=== PATIENT | female | born 1995 ===

== ENCOUNTER 2017-02-07 00:44 | Emergency (ER) | payer SELFPAY ==
[2017-02-07 00:50] VITALS: BP 102/67; PULSE 75; RESP 18; TEMP 98; O2SAT 100
--- NOTE | 2017-02-07 01:35 | ED PDOC ---
HPI: Abdomen Time Seen by Provider: 02/07/17 00:56 Chief Complaint (Nursing): Abdominal Pain Chief Complaint (Provider): Abdominal Pain History Per: Patient History/Exam Limitations: no limitations Onset/Duration Of Symptoms: Days (x2 days ago), Sudden Onset, Persistent Outside of [place] travel?: No Current Symptoms Are (Timing): Still Present Severity: Moderate Location Of Pain/Discomfort: RLQ Associated Symptoms: denies: Nausea, Vomiting, Diarrhea, Urinary Symptoms, Other ((-) vaginal bleeding/discharge) Exacerbating Factors: Movement, Cough, Walking Additional Complaint(s): Paola Delacruz is a 21 year old female, with a past medical history of ovarian cysts, who presents to the emergency department for the evaluation of right- sided pelvic pain, that the patient has been experiencing for the past 2 days. Patient states the pain came on suddenly and has since then been constant. The pain radiates throughout her right lower quadrant and into her lower back. Exacerbating factors include ambulation and a cough that does not produce sputum. Denies nausea, vomiting, diarrhea, dysuria, or vaginal bleeding/ discharge. PMD: Dr. Valdivia Past Medical History Reviewed: Historical Data, Nursing Documentation, Vital Signs Vital Signs: Last Vital Signs Temp 98 F 02/07/17 00:48 Pulse 75 02/07/17 00:48 Resp 18 02/07/17 00:48 BP 102/67 02/07/17 00:48 Pulse Ox 100 02/07/17 03:36 - Medical History PMH: Denies: Chronic Kidney Disease Other PMH: Ovarian Cysts - Surgical History Surgical History: No Surg Hx - Family History Family History: States: Unknown Family Hx - Immunization History Hx Tetanus Toxoid Vaccination: No Hx Influenza Vaccination: No Hx Pneumococcal Vaccination: No - Home Medications Home Medications: Ambulatory Orders Medication Instructions Recorded Ciprofloxacin [Cipro] 500 mg PO BID #14 tab 11/10/16 - Allergies Allergies/Adverse Reactions: Allergies Allergy/AdvReac Type Severity Reaction Status Date / Time No Known Allergies Allergy Verified 07/24/16 13:01 Review of Systems ROS Statement: Except As Marked, All Systems Reviewed And Found Negative Respiratory: Positive for: Cough. Negative for: Sputum Gastrointestinal: Negative for: Nausea, Vomiting, Diarrhea Genitourinary Female: Positive for: Pelvic Pain. Negative for: Dysuria, Vaginal Discharge, Vaginal Bleeding Musculoskeletal: Positive for: Back Pain (lower) Physical Exam - Reviewed Nursing Documentation Reviewed: Yes Vital Signs Reviewed: Yes - Physical Exam Appears: Positive for: Non-toxic, No Acute Distress Head Exam: Positive for: ATRAUMATIC, NORMOCEPHALIC Skin: Positive for: Normal Color, Warm, Dry Eye Exam: Positive for: Normal appearance, EOMI Neck: Positive for: Normal, Painless ROM Cardiovascular/Chest: Positive for: Regular Rate, Rhythm. Negative for: Murmur Respiratory: Positive for: Normal Breath Sounds. Negative for: Respiratory Distress Gastrointestinal/Abdominal: Positive for: Normal Exam, Soft, Tenderness (RLQ) Extremity: Positive for: Normal ROM. Negative for: Tenderness, Swelling Neurologic/Psych: Positive for: Alert, Oriented - Laboratory Results Result Diagrams: 02/07/17 01:33 02/07/17 01:33 - ECG O2 Sat by Pulse Oximetry: 100 (RA) Pulse Ox Interpretation: Normal - CT Scan/US Transvaginal US Other Rad Studies (CT/US): Interpreted By Me, Read By Radiologist, Radiology Report Reviewed - Progress Re-evaluation Time: 05:04 Condition: Re-examined, Improved Medical Decision Making Medical Decision Makin:56 Initial Impression: RLQ pain Differential Diagnoses include, but are not limited to a ruptured ovarian cyst, ovarian torsion, less likely appendicitis, and other causes of abdominal pain, such as complications and a urinary tract infection. Initial Plan: * Transvaginal US * CBC * BMP * Urine * Urine Dip * Reevaluation Transvaginal US Results FINDINGS: Uterus: Within normal limits in appearance. Measures 6.8 x 4.0 x 5.6 cm. Endometrial stripe does not appear abnormally thickened, measuring 9.6 mm maximally. Cervix appears closed. Right ovary: Enlarged, measuring 4.6 x 3.5 x 3.1 cm, secondary to a cystic lesion measuring 4.3 x 3.1 x 2.7 cm. This lesion contains a single, echogenic septation. It is otherwise simple in nature. No followup is warranted based on the imaging findings, unless otherwise clinically indicated. Flow seen in the right ovarian parenchyma surrounding this lesion on color and Doppler imaging. Left ovary: Within normal limits in appearance. Measures 2.8 x 2.1 x 1.9 cm. Contains multiple small follicles. Flow seen in the left ovary on color and Doppler imaging, with no evidence of torsion. Cul-de-sac: Small amount of free fluid is identified. This does not appear complex. It is most likely be physiologic in nature. IMPRESSION: 4.3 cm minimally complex cystic lesion in the right ovary. Please see above for a full description. Small amount of free fluid in the cul-de-sac. This may be physiologic in nature. Otherwise negative exam. No evidence of ovarian torsion. Scribe Attestation: Documented by Hadley Bello, acting as a scribe for Sheldon Gardiner MD. Provider Scribe Attestation: All medical record entries made by the Scribe were at my direction and personally dictated by me. I have reviewed the chart and agree that the record accurately reflects my personal performance of the history, physical exam, medical decision making, and the department course for this patient. I have also personally directed, reviewed, and agree with the discharge instructions and disposition. Disposition - Clinical Impression Clinical Impression: Abdominal pain, Ruptured ovarian cyst - Patient ED Disposition Is Patient to be Admitted: No Doctor Will See Patient In The: Office Counseled Patient/Family Regarding: Studies Performed, Diagnosis, Need For Followup - Disposition Referrals: [facility] [Outside] Disposition: Routine/Home Disposition Time: 05:04 Condition: GOOD Additional Instructions: Take advil for pain. Return for worsening. Follow up with your PCP in 2-3 days. Instructions: Ovarian Cyst (ED)
[2017-02-07 01:45] LABS: BASO # 0.1 K/uL (0.0-0.2); BASO % 0.6 % (0.0-2.0); EOS # 0.3 K/uL (0.0-0.7); EOS % 2.6 % (0.0-4.0); HEMATOCRIT 37.2 % (34.0-47.0); LYMPH # 4.4 K/uL (1.0-4.3); LYMPH % 43.3 % (20.0-40.0); MEAN CELL VOLUME 87.5 fl (81.0-99.0); MEAN CORPUSCULAR HEMOGLOBIN 30.7 pg (27.0-31.0); MEAN CORPUSCULAR HGB CONC 35.1 g/dL (33.0-37.0); MEAN PLATELET VOLUME 8.6 fl (7.2-11.7); MONO # 0.6 K/uL (0.0-0.8); NEUT # 4.8 K/uL (1.8-7.0); NEUT % 47.5 % (50.0-75.0); NRBC % 0.1 % (0.0-0.0); RED CELL DISTRIBUTION WIDTH 12.6 % (11.5-14.5); WHITE BLOOD COUNT 10.1 K/uL (4.8-10.8)
[2017-02-07 01:58] LABS: BLOOD UREA NITROGEN 11 mg/dl (7-17); CALCIUM 9.5 mg/dL (8.4-10.2); CARBON DIOXIDE 24 mmol/L (22-30); CHLORIDE 104 mmol/L (98-107); GFR AFRICAN-AMERICAN > 60; GLUCOSE,RANDOM 96 mg/dL (65-105); POTASSIUM 3.4 MMOL/L (3.6-5.0); SODIUM 142 mmol/l (132-148)
--- NOTE | 2017-02-07 03:31 | US ---
EXAM: US Pelvis Complete, Transabdominal US Pelvis, Transvaginal CLINICAL HISTORY: 21 years old, female; Pain; Pelvic pain; Additional info: Right pelvic pain TECHNIQUE: Real-time transabdominal and transvaginal pelvic ultrasound (complete) with image documentation. Transvaginal imaging was used for better evaluation of the endometrium and adnexa. EXAM DATE/TIME: 02/07/2017 1:28 AM COMPARISON: No relevant prior studies available. FINDINGS: Uterus: Within normal limits in appearance. Measures 6.8 x 4.0 x 5.6 cm. Endometrial stripe does not appear abnormally thickened, measuring 9.6 mm maximally. Cervix appears closed. Right ovary: Enlarged, measuring 4.6 x 3.5 x 3.1 cm, secondary to a cystic lesion measuring 4.3 x 3.1 x 2.7 cm. This lesion contains a single, echogenic septation. It is otherwise simple in nature. No followup is warranted based on the imaging findings, unless otherwise clinically indicated. Flow seen in the right ovarian parenchyma surrounding this lesion on color and Doppler imaging. Left ovary: Within normal limits in appearance. Measures 2.8 x 2.1 x 1.9 cm. Contains multiple small follicles. Flow seen in the left ovary on color and Doppler imaging, with no evidence of torsion. Cul-de-sac: Small amount of free fluid is identified. This does not appear complex. It is most likely be physiologic in nature. IMPRESSION: 4.3 cm minimally complex cystic lesion in the right ovary. Please see above for a full description. Small amount of free fluid in the cul-de-sac. This may be physiologic in nature. Otherwise negative exam. No evidence of ovarian torsion.
== END 2017-02-07 05:24 | disposition home or self-care (01) ==
LOC: H.ER 00:44
DX: N83.209 Unspecified ovarian cyst, unspecified side (principal); R10.31 Right lower quadrant pain; R10.2 Pelvic and perineal pain

== ENCOUNTER 2017-04-06 10:55 | Emergency (ER) | payer SELFPAY ==
[2017-04-06 11:01] VITALS: BP 95/64; PULSE 75; TEMP 98.2; O2SAT 98
[2017-04-06 11:02] VITALS: BMI 22.4
--- NOTE | 2017-04-06 11:47 | ED PDOC ---
HPI: Female Pain Time Seen by Provider: 04/06/17 11:35 Chief Complaint (Nursing): Female Genitourinary Chief Complaint (Provider): History Per: Patient History/Exam Limitations: no limitations Associated Symptoms: denies: Fever, Chills, Nausea, Vomiting, Diarrhea, Loss Of Appetite, Back Pain, Chest Pain, Constipation, Urinary Symptoms Additional Complaint(s): 22yo F in ED for eval of vagina d/c x 3-4 days noted after having unprotected sex with new partner-states she has vaginal wall pain, yellow d/c and suprapubic pain.no fever chills nausea vomiting. no vaginal wall lesions no vaginal bleeding. Past Medical History Reviewed: Historical Data, Nursing Documentation, Vital Signs Vital Signs: Last Vital Signs Temp 98.2 F 04/06/17 11:00 Pulse 75 04/06/17 11:00 Resp BP 95/64 L 04/06/17 11:00 Pulse Ox 98 04/06/17 11:00 - Medical History PMH: No Chronic Diseases Denies: Chronic Kidney Disease - Family History Family History: States: Unknown Family Hx - Immunization History Hx Tetanus Toxoid Vaccination: No Hx Influenza Vaccination: No Hx Pneumococcal Vaccination: No - Home Medications Home Medications: Ambulatory Orders Medication Instructions Recorded Ciprofloxacin [Cipro] 500 mg PO BID #14 tab 11/10/16 - Allergies Allergies/Adverse Reactions: Allergies Allergy/AdvReac Type Severity Reaction Status Date / Time No Known Allergies Allergy Verified 07/24/16 13:01 Review of Systems ROS Statement: Except As Marked, All Systems Reviewed And Found Negative Genitourinary Female: Positive for: Vaginal Discharge, Pelvic Pain. Negative for: Vaginal Bleeding Musculoskeletal: Negative for: Back Pain Physical Exam - Reviewed Nursing Documentation Reviewed: Yes Vital Signs Reviewed: Yes - Physical Exam Appears: Positive for: Well, Non-toxic, No Acute Distress Head Exam: Positive for: ATRAUMATIC, NORMAL INSPECTION, NORMOCEPHALIC Skin: Positive for: Normal Color, Warm, DRY Cardiovascular/Chest: Positive for: Regular Rate, Rhythm Respiratory: Positive for: CNT, Normal Breath Sounds Gastrointestinal/Abdominal: Positive for: Normal Exam, Bowel Sounds, Soft, Tenderness Pelvic Exam: Positive for: Discharge, Tender W/Cervical Motion. Negative for: Speculum Exam Normal (yellow d/c), Bimanual Exam Normal, No Cerv. Motion Tender , Lesions, Mass, Tender Adnexa, Tender Uterus Back: Negative for: L CVA Tenderness, R CVA Tenderness Extremity: Positive for: Normal ROM Neurologic/Psych: Positive for: Alert, Oriented - ECG O2 Sat by Pulse Oximetry: 98 Medical Decision Making Medical Decision Making: pt will get prophylactic tx in ED via [id number] and Rocephin 250mg IM STI testing performed pt advised to abstain from sexual intercourse until results are in ., Disposition - Clinical Impression Clinical Impression: Vaginal discharge - Patient ED Disposition Is Patient to be Admitted: No Counseled Patient/Family Regarding: Studies Performed, Diagnosis, Need For Followup - Disposition Disposition: Routine/Home Disposition Time: 11:49 Condition: STABLE Instructions: Sexually Transmitted Diseases (ED)
--- NOTE | 2017-04-06 12:59 | ED PDOC ---
HPI: Female Pain Time Seen by Provider: 04/06/17 11:35 Chief Complaint (Nursing): Female Genitourinary Chief Complaint (Provider): vaignal swelling History Per: Patient History/Exam Limitations: no limitations Onset/Duration Of Symptoms: Days (2-3) Associated Symptoms: denies: Fever, Chills, Nausea, Vomiting, Diarrhea, Loss Of Appetite, Back Pain, Chest Pain, Constipation, Urinary Symptoms Additional Complaint(s): 22yo f in ED for eval of labia swelling and burning x 2d no hx of STI, no vaginal d/.c no pelvic cramping no dysuria no back pain Abnormal Vaginal Bleeding: No Past Medical History Reviewed: Historical Data, Nursing Documentation, Vital Signs Vital Signs: Last Vital Signs Temp 98.2 F 04/06/17 11:00 Pulse 75 04/06/17 11:00 Resp BP 95/64 L 04/06/17 11:00 Pulse Ox 98 04/06/17 11:50 - Medical History PMH: No Chronic Diseases Denies: Chronic Kidney Disease - Family History Family History: States: Unknown Family Hx - Immunization History Hx Tetanus Toxoid Vaccination: No Hx Influenza Vaccination: No Hx Pneumococcal Vaccination: No - Home Medications Home Medications: Ambulatory Orders Medication Instructions Recorded Ciprofloxacin [Cipro] 500 mg PO BID #14 tab 11/10/16 Fluconazole [Diflucan] 150 mg PO ONCE #1 tab 04/06/17 Miconazole 2% [Miconazole 2% Cream] 1 ea EXT BID #1 tube 04/06/17 - Allergies Allergies/Adverse Reactions: Allergies Allergy/AdvReac Type Severity Reaction Status Date / Time No Known Allergies Allergy Verified 07/24/16 13:01 Review of Systems ROS Statement: Except As Marked, All Systems Reviewed And Found Negative Constitutional: Negative for: Fever, Chills Genitourinary Female: Positive for: Other (vaginal burning) Physical Exam - Reviewed Nursing Documentation Reviewed: Yes Vital Signs Reviewed: Yes - Physical Exam Appears: Positive for: Well, Non-toxic, No Acute Distress Skin: Positive for: Normal Color, Warm, DRY Cardiovascular/Chest: Positive for: Regular Rate, Rhythm Respiratory: Positive for: CNT, Normal Breath Sounds Gastrointestinal/Abdominal: Positive for: Normal Exam, Bowel Sounds, Soft. Negative for: Tenderness Pelvic Exam: Negative for: Speculum Exam Normal (d/c white coating to vaginal wall. ), Active Bleeding, Tender Adnexa, Tender Uterus Back: Positive for: Normal Inspection Neurologic/Psych: Positive for: Alert, Oriented - ECG O2 Sat by Pulse Oximetry: 98 Medical Decision Making Medical Decision Making: dx: yeast infection. will get difuclan in ED and d/c with Rx for diflcuan and miconazole creame. Disposition - Clinical Impression Clinical Impression: Vaginal discharge, Vagina, candidiasis - Patient ED Disposition Is Patient to be Admitted: No Counseled Patient/Family Regarding: Diagnosis, Need For Followup, Rx Given - Disposition Disposition: Routine/Home Disposition Time: 11:49 Condition: STABLE Prescriptions: Fluconazole [Diflucan] 150 mg PO ONCE #1 tab Miconazole 2% [Miconazole 2% Cream] 1 ea EXT BID #1 tube Print Language: SAMMARINESE
[2017-04-06] MEDS ORDERED: Fluconazole 150 MG TAB PO ONE (13:02)
== END 2017-04-06 13:28 | disposition home or self-care (01) ==
LOC: H.ER 10:55
DX: B37.3 Candidiasis of vulva and vagina (principal); N89.8 Other specified noninflammatory disorders of vagina

== ENCOUNTER 2017-05-21 04:16 | Observation (INO) | payer SELFPAY ==
[2017-05-21 04:16] VITALS: BMI 22.4
[2017-05-21] MEDS ORDERED: Sodium Chloride 0.9% 1,000 ML IV STA (04:48)
[2017-05-21] MEDS ORDERED: Iohexol 240 (50 ml) PO ONE (04:48)
--- NOTE | 2017-05-21 04:51 | ED PDOC ---
HPI: Abdomen Time Seen by Provider: 05/21/17 04:26 Chief Complaint (Nursing): Abdominal Pain Chief Complaint (Provider): abdominal pain History Per: Patient History/Exam Limitations: no limitations Onset/Duration Of Symptoms: Days (4) Current Symptoms Are (Timing): Still Present Location Of Pain/Discomfort: Diffuse Quality Of Discomfort: Cramping, "Pain" Associated Symptoms: Nausea. denies: Fever, Chills, Vomiting, Diarrhea Additional History Per: Patient Additional Complaint(s): 22 y/o female presents with diffuse abdominal pain x 4 days, worsening today. Patient notes diarrhea with onset of pain, which resolved that day. Last BM consisting of hard stool. Associated nausea. Denies fever, vomiting, chest pain , shortness of breath, dysuria, hematuria, vaginal bleeding/discharge. Past Medical History Reviewed: Historical Data, Nursing Documentation, Vital Signs Vital Signs: Last Vital Signs Temp 98.1 F 05/21/17 04:26 Pulse 75 05/21/17 04:26 Resp 16 05/21/17 04:26 BP 96/58 L 05/21/17 04:26 Pulse Ox 99 05/21/17 04:51 - Medical History PMH: No Chronic Diseases Denies: Chronic Kidney Disease - Surgical History Surgical History: No Surg Hx - Family History Family History: States: Unknown Family Hx - Immunization History Hx Tetanus Toxoid Vaccination: No Hx Influenza Vaccination: No Hx Pneumococcal Vaccination: No - Home Medications Home Medications: Ambulatory Orders Medication Instructions Recorded Ciprofloxacin [Cipro] 500 mg PO BID #14 tab 11/10/16 Fluconazole [Diflucan] 150 mg PO ONCE #1 tab 04/06/17 Miconazole 2% [Miconazole 2% Cream] 1 ea EXT BID #1 tube 04/06/17 - Allergies Allergies/Adverse Reactions: Allergies Allergy/AdvReac Type Severity Reaction Status Date / Time No Known Allergies Allergy Verified 07/24/16 13:01 Review of Systems ROS Statement: Except As Marked, All Systems Reviewed And Found Negative Gastrointestinal: Positive for: Abdominal Pain Physical Exam - Reviewed Nursing Documentation Reviewed: Yes Vital Signs Reviewed: Yes - Physical Exam Appears: Positive for: Well, Non-toxic, No Acute Distress Head Exam: Positive for: ATRAUMATIC, NORMAL INSPECTION, NORMOCEPHALIC Skin: Positive for: Normal Color Eye Exam: Positive for: Normal appearance ENT: Positive for: Normal ENT Inspection Cardiovascular/Chest: Positive for: Regular Rate, Rhythm Respiratory: Positive for: Normal Breath Sounds Gastrointestinal/Abdominal: Positive for: Bowel Sounds, Soft, Tenderness ( epigastric, rlq, suprapubic) Extremity: Positive for: Normal ROM Neurologic/Psych: Positive for: Alert, Oriented - Laboratory Results Result Diagrams: 05/21/17 05:06 05/21/17 05:06 - ECG O2 Sat by Pulse Oximetry: 99 ED OBSERVATION Date of observation admission: 05/21/17 Time of observation admission: 05:40 - Observation admission statement Patient is being placed in observation because:: abdominal pain - Goals of Observation Goals of observation are:: obtain CT abd/pelvis - Progress Note Progress Note: 05/21/17 05:43 Patient resting comfortably; started PO contrast Disposition - Clinical Impression Clinical Impression: Abdominal pain - Patient ED Disposition Is Patient to be Admitted: No - Disposition Disposition: Transfer of Care Disposition Time: 06:00 Condition: STABLE Patient Signed Over To: Sheldon Gardiner Handoff Comments: pending CT
[2017-05-21] MEDS ORDERED: Iohexol 240 (50 ml) ONE (05:08)
[2017-05-21 05:09] LABS: BASO % 0.5 % (0.0-2.0); EOS # 0.1 K/uL (0.0-0.7); HEMATOCRIT 35.6 % (34.0-47.0); LYMPH # 1.7 K/uL (1.0-4.3); LYMPH % 22.2 % (20.0-40.0); MEAN CELL VOLUME 88.5 fl (81.0-99.0); MEAN CORPUSCULAR HGB CONC 33.9 g/dL (33.0-37.0); MEAN PLATELET VOLUME 8.5 fl (7.2-11.7); MONO # 0.5 K/uL (0.0-0.8); MONO % 7.1 % (0.0-10.0); NEUT # 5.2 K/uL (1.8-7.0); NEUT % 69.2 % (50.0-75.0); NRBC % 0.1 % (0.0-0.0); RED CELL DISTRIBUTION WIDTH 12.7 % (11.5-14.5); WHITE BLOOD COUNT 7.5 K/uL (4.8-10.8)
[2017-05-21 05:17] LABS: ALB/GLOB RATIO 1.6 (1.0-2.1); ALKALINE PHOSPHATASE 47 U/L (38-126); ALT/SGPT 40 U/L (9-52); AST/SGOT 22 U/L (14-36); BILIRUBIN,TOTAL 0.4 mg/dl (0.2-1.3); BLOOD UREA NITROGEN 8 mg/dl (7-17); CALCIUM 9.4 mg/dL (8.4-10.2); CARBON DIOXIDE 22 mmol/L (22-30); CHLORIDE 107 mmol/L (98-107); GFR AFRICAN-AMERICAN > 60; GLUCOSE,RANDOM 108 mg/dL (65-105); LIPASE 46 U/L (23-300); POTASSIUM 3.7 MMOL/L (3.6-5.0); SODIUM 140 mmol/l (132-148); TOTAL PROTEIN 7.2 G/DL (6.3-8.2)
[2017-05-21 05:47] LABS: RBC URINE 7 /hpf (0-3); URINE BACTERIA RARE (<OCC); URINE BILIRUBIN NEGATIVE (NEGATIVE); URINE BLOOD NEGATIVE (NEGATIVE); URINE COLOR YELLOW (YELLOW); URINE GLUCOSE (UA) NEG (Normal); URINE KETONE NEGATIVE (NEGATIVE); URINE LEUKOCYTE ESTERASE NEG Leu/uL (Negative); URINE PROTEIN 100 mg/dL (NEGATIVE); URINE UROBILINOGEN 0.2-1.0 mg/dL (0.2-1.0); WBC URINE 2 /hpf (0-5)
--- NOTE | 2017-05-21 05:49 | ED PDOC ---
- Laboratory Results Result Diagrams: 05/21/17 05:06 05/21/17 05:06 - ECG O2 Sat by Pulse Oximetry: 99 (RA) Pulse Ox Interpretation: Normal Medical Decision Making Medical Decision Making: Receiving Sign Out: Patient signed out to me by Glenda Montes PA-C pending CT and final disposition. Scribe Attestation: Documented by Torie Laurent, acting as a scribe for Sheldon Gardiner MD. Provider Scribe Attestation: All medical record entries made by the Scribe were at my direction and personally dictated by me. I have reviewed the chart and agree that the record accurately reflects my personal performance of the history, physical exam, medical decision making, and the department course for this patient. I have also personally directed, reviewed, and agree with the discharge instructions and disposition. Disposition Counseled Patient/Family Regarding: Studies Performed, Diagnosis - Clinical Impression Clinical Impression: Abdominal pain - POA Present On Arrival: None - Disposition Disposition: Transfer of Care Disposition Time: 07:00 Condition: FAIR Patient Signed Over To: Gisela Aguirre Handoff Comments: pending CT AP and final dispo ED OBSERVATION Date of observation admission: 05/21/17 Time of observation admission: 05:40 - Progress Note Progress Note: 05/21/17 06:20 Patient resting in room. 05/21/17 07:00 Patient to be signed out to Dr. Aguirre pending CT AP and final disposition.
[2017-05-21 07:21] VITALS: RESP 18
[2017-05-21] MEDS ORDERED: Iohexol 300 100 ML IJ ONE (07:35)
[2017-05-21] MEDS ORDERED: Sodium Chloride 0.9% 50 ML IV ONE (07:36)
--- NOTE | 2017-05-21 09:01 | CT ---
PROCEDURE: CT Abdomen and Pelvis with contrast HISTORY: abd pain COMPARISON: None. TECHNIQUE: Contrast dose: 95 mL Omnipaque 300 Radiation dose: Total exam DLP = 293.07 mGy-cm. This CT exam was performed using one or more of the following dose reduction techniques: Automated exposure control, adjustment of the mA and/or kV according to patient size, and/or use of iterative reconstruction technique. FINDINGS: LOWER THORAX: Unremarkable. LIVER: Unremarkable. No gross lesion or ductal dilatation. GALLBLADDER AND BILE DUCTS: Unremarkable. PANCREAS: Unremarkable. No gross lesion or ductal dilatation. SPLEEN: Unremarkable. ADRENALS: Unremarkable. No mass. KIDNEYS AND URETERS: Unremarkable. No hydronephrosis. No solid mass. VASCULATURE: Unremarkable. No aortic aneurysm. BOWEL: Unremarkable. No obstruction. No gross mural thickening. APPENDIX: Normal appendix. PERITONEUM: Minimal fluid in cul-de-sac. No generalized ascites. No pneumoperitoneum. LYMPH NODES: No retroperitoneal or pelvic lymphadenopathy. Shotty subcentimeter mesenteric nodes medial to the ascending colon, nonspecific. BLADDER: Grossly normal. Poorly distended. REPRODUCTIVE: Unremarkable uterus. Normal ovaries. BONES: No acute fracture. OTHER FINDINGS: None. IMPRESSION: Minimal fluid in cul-de-sac, nonspecific. Shotty subcentimeter lymph nodes medial to the ascending colon, nonspecific. Please correlate clinically. The remainder of the examination is within normal limits.
--- NOTE | 2017-05-21 09:11 | ED PDOC ---
- Laboratory Results Result Diagrams: 05/21/17 05:06 05/21/17 05:06 - ECG O2 Sat by Pulse Oximetry: 98 - Progress ED Course And Treament: Patient signed out to me as Pending CT and reeval CT shows "minimal fluid in cul de sac, non-specific. Shotty subcentimeter lymph nodes medial to the ascending colon, non-specific." Patient has normal blood work and normal ua. She was made aware of CT results and non-specific lymphadenopathy. On reevaluation, she reports that she feels better. She is afebrile with soft NT/ND abdomen. She is tolerating po. She does not have any diarrhea. Will dc home to follow-up with PMD Disposition - Clinical Impression Clinical Impression: Abdominal pain, LAD (lymphadenopathy), Vomiting - POA Present On Arrival: None - Disposition Disposition: Routine/Home Disposition Time: 09:33 Condition: GOOD
[2017-05-21 09:59] VITALS: BP 118/65; PULSE 68; TEMP 98; O2SAT 99
== END 2017-05-21 09:46 | disposition home or self-care (01) ==
LOC: H.ER 04:16 → H.EROBSV 05:40
PROVIDERS: ADMIT Emergency Medicine; ATTEND Emergency Medicine
DX: R10.84 Generalized abdominal pain (principal); R59.1 Generalized enlarged lymph nodes; R11.10 Vomiting, unspecified

== ENCOUNTER 2017-08-04 23:00 | Emergency (ER) | payer SELFPAY ==
[2017-08-04 23:00] VITALS: BMI 22.4
[2017-08-04 23:12] VITALS: RESP 18; TEMP 97.9; O2SAT 99
[2017-08-04] MEDS ORDERED: Sodium Chloride 0.9% 1,000 ML IV STA (23:54)
[2017-08-05 00:08] LABS: BASO % 0.4 % (0.0-2.0); EOS # 0.1 K/uL (0.0-0.7); EOS % 1.2 % (0.0-4.0); HEMATOCRIT 35.9 % (34.0-47.0); LYMPH # 1.5 K/uL (1.0-4.3); LYMPH % 17.1 % (20.0-40.0); MEAN CELL VOLUME 88.8 fl (81.0-99.0); MEAN CORPUSCULAR HEMOGLOBIN 30.7 pg (27.0-31.0); MEAN CORPUSCULAR HGB CONC 34.5 g/dL (33.0-37.0); MEAN PLATELET VOLUME 8.3 fl (7.2-11.7); MONO # 0.7 K/uL (0.0-0.8); MONO % 7.9 % (0.0-10.0); NEUT # 6.5 K/uL (1.8-7.0); NEUT % 73.4 % (50.0-75.0); RED CELL DISTRIBUTION WIDTH 12.3 % (11.5-14.5); WHITE BLOOD COUNT 8.8 K/uL (4.8-10.8)
[2017-08-05 00:18] LABS: ALB/GLOB RATIO 1.5 (1.0-2.1); ALKALINE PHOSPHATASE 45 U/L (38-126); ALT/SGPT 34 U/L (9-52); AST/SGOT 29 U/L (14-36); BILIRUBIN,TOTAL 0.2 mg/dl (0.2-1.3); BLOOD UREA NITROGEN 10 mg/dl (7-17); CALCIUM 9.4 mg/dL (8.4-10.2); CARBON DIOXIDE 24 mmol/L (22-30); CHLORIDE 103 mmol/L (98-107); GFR AFRICAN-AMERICAN > 60; GLUCOSE,RANDOM 122 mg/dL (65-105); LIPASE 47 U/L (23-300); POTASSIUM 3.5 MMOL/L (3.6-5.0); SODIUM 141 mmol/l (132-148); TOTAL PROTEIN 7.5 G/DL (6.3-8.2)
[2017-08-05 00:52] LABS: RBC URINE 4 /hpf (0-3); URINE BILIRUBIN NEGATIVE (NEGATIVE); URINE BLOOD NEGATIVE (NEGATIVE); URINE COLOR YELLOW (YELLOW); URINE GLUCOSE (UA) NEG (Normal); URINE KETONE NEGATIVE (NEGATIVE); URINE LEUKOCYTE ESTERASE NEG Leu/uL (Negative); URINE PROTEIN 30 mg/dL (NEGATIVE); URINE UROBILINOGEN 0.2-1.0 mg/dL (0.2-1.0); WBC URINE 11 /hpf (0-5)
--- NOTE | 2017-08-05 02:44 | US ---
EXAM: US Abdomen Limited, Right Upper Quadrant EXAM DATE/TIME: 08/05/2017 1:17 AM CLINICAL HISTORY: 22 years old, female; Pain; Abdominal pain; Epigastric; Additional info: Ruq pain TECHNIQUE: Real-time ultrasound of the right upper quadrant with image documentation. COMPARISON: No relevant prior studies available. FINDINGS: Gallbladder: Appears contracted, which somewhat limits evaluation. There is no evidence of gallstones, significant gallbladder wall thickening, or pericholecystic fluid. Reportedly negative sonographic Chilel's sign. Common bile duct: Does not appear abnormally dilated, measuring less than 6 mm in diameter. Liver: Within normal limits in appearance. Measures 13.9 cm in length. Normal flow seen in the main portal vein on color and Doppler imaging. Pancreas: Imaged portions appear unremarkable. Right kidney: Within normal limits in appearance. Measures 9 cm in length. No evidence of hydronephrosis. IMPRESSION: No significant abnormality identified. No evidence of gallstones or cholecystitis. Exam is somewhat limited by gallbladder contraction. See above for remaining findings.
--- NOTE | 2017-08-05 03:00 | ED PDOC ---
HPI: Abdomen Time Seen by Provider: 08/04/17 23:26 Chief Complaint (Nursing): Abdominal Pain Chief Complaint (Provider): Abdominal Pain, nasuea, vomiting, diarrhea History Per: Patient History/Exam Limitations: no limitations Onset/Duration Of Symptoms: Days (2 days) Outside of [place] travel?: No Current Symptoms Are (Timing): Still Present Associated Symptoms: Nausea, Vomiting (nonbloody, nonbilious), Diarrhea ( nonbloody) Additional Complaint(s): Patient is a 22 y/o female with a past medical history of ovarian cyst , presenting to the ED with 24 hours of worsening epigastric abdominal pain that radiates to the back. She reports associated nausea, non bloody no bilious vomiting, and non bloody diarrhea. She notes that she has not had any recent travel, and denies any further symptoms. PMD: FAMILY PROVIDER,NO Past Medical History Reviewed: Historical Data, Nursing Documentation, Vital Signs Vital Signs: Last Vital Signs Temp 97.9 F 08/04/17 23:10 Pulse 98 H 08/04/17 23:10 Resp 18 08/04/17 23:10 BP 98/79 L 08/04/17 23:10 Pulse Ox 99 08/04/17 23:10 - Medical History PMH: Denies: Chronic Kidney Disease Other PMH: Ovarian cyst - Surgical History Surgical History: No Surg Hx - Family History Family History: States: No Known Family Hx, Unknown Family Hx - Social History Current smoker - smoking cessation education provided: No Alcohol: None Drugs: Denies - Immunization History Hx Tetanus Toxoid Vaccination: No Hx Influenza Vaccination: No Hx Pneumococcal Vaccination: No - Home Medications Home Medications: Ambulatory Orders Medication Instructions Recorded Ciprofloxacin [Cipro] 500 mg PO BID #14 tab 11/10/16 Fluconazole [Diflucan] 150 mg PO ONCE #1 tab 04/06/17 Miconazole 2% [Miconazole 2% Cream] 1 ea EXT BID #1 tube 04/06/17 Dicyclomine [Bentyl] 20 mg PO Q12 PRN #20 tab 08/05/17 Esomeprazole Magnesium [Nexium] 40 mg PO DAILY #28 ecc 08/05/17 Nitrofurantoin Macrocrystals 100 mg PO BID #14 cap 08/05/17 [Macrobid] Ondansetron ODT [Zofran ODT] 4 mg PO Q6 PRN #16 odt 08/05/17 - Allergies Allergies/Adverse Reactions: Allergies Allergy/AdvReac Type Severity Reaction Status Date / Time No Known Allergies Allergy Verified 08/04/17 23:10 Review of Systems ROS Statement: Except As Marked, All Systems Reviewed And Found Negative Gastrointestinal: Positive for: Nausea, Vomiting (non bloody, non bilious), Abdominal Pain (epigastric, radiating to back), Diarrhea (non bloody) Physical Exam - Reviewed Nursing Documentation Reviewed: Yes Vital Signs Reviewed: Yes - Physical Exam Appears: Positive for: No Acute Distress Head Exam: Positive for: ATRAUMATIC, NORMOCEPHALIC Skin: Positive for: Normal Color, Warm, Dry Eye Exam: Positive for: Normal appearance, EOMI, PERRL Neck: Positive for: Normal, Painless ROM, Supple Cardiovascular/Chest: Positive for: Regular Rate, Rhythm. Negative for: Murmur Respiratory: Positive for: Normal Breath Sounds. Negative for: Respiratory Distress Gastrointestinal/Abdominal: Positive for: Tenderness (epigastric) Back: Positive for: Normal Inspection. Negative for: L CVA Tenderness, R CVA Tenderness, Vertebral Tenderness Extremity: Positive for: Normal ROM. Negative for: Tenderness Neurologic/Psych: Positive for: Alert, Oriented (x3) - Laboratory Results Result Diagrams: 08/05/17 00:06 08/05/17 00:06 - ECG O2 Sat by Pulse Oximetry: 99 (RA) Pulse Ox Interpretation: Normal Medical Decision Making Medical Decision Making: Time: 23:34 Initial Impression: 22 y/o female with abdominal pain, vomiting, and diarrhea in setting of known gastritis Initial Plan: -Labs -Urine -Sodium Chloride 0.9% 1000 ml IV -Ketorolac 10 mg IVP -Zofran 4 mg IV -Heplock Insertion -Urinalysis -US Abdomen 0117 US Abdomen Results FINDINGS: Gallbladder: Appears contracted, which somewhat limits evaluation. There is no evidence of gallstones, significant gallbladder wall thickening, or pericholecystic fluid. Reportedly negative sonographic Chilel's sign. Common bile duct: Does not appear abnormally dilated, measuring less than 6 mm in diameter. Liver: Within normal limits in appearance. Measures 13.9 cm in length. Normal flow seen in the main portal vein on color and Doppler imaging. Pancreas: Imaged portions appear unremarkable. Right kidney: Within normal limits in appearance. Measures 9 cm in length. No evidence of hydronephrosis. IMPRESSION: No significant abnormality identified. No evidence of gallstones or cholecystitis. Exam is somewhat limited by gallbladder contraction. See above for remaining findings. 0132 -Bentyl 20 mg PO 0303 -Labs reviewed and report no clinically significant abnormalities. Patient reports improvement in symptoms, is stable and awaiting discharge home. Clinical Impression: Gastroenteritis and UTI Upon provider evaluation patient is medically stable, and requires no further treatment in the ED at this time. Patient will be discharged with Rx for Bentyl 20mg, Magnesium 40mg, Macrobid 100mg, and Zofran ODT 4mg. Counseling was provided and all questions were answered regarding diagnosis. There is agreement to discharge plan. Return if symptoms persist or worsen. Scribe Attestation: Documented by Maritza Daniel, acting as a scribe for Shane Zendejas MD Provider Scribe Attestation: All medical record entries made by the Scribe were at my direction and personally dictated by me. I have reviewed the chart and agree that the record accurately reflects my personal performance of the history, physical exam, medical decision making, and the department course for this patient. I have also personally directed, reviewed, and agree with the discharge instructions and disposition. Disposition - Clinical Impression Clinical Impression: UTI (urinary tract infection), Gastroenteritis - Disposition Disposition: Routine/Home Disposition Time: 03:03 Condition: STABLE Prescriptions: Dicyclomine [Bentyl] 20 mg PO Q12 PRN #20 tab PRN Reason: abdominal pain/diarrhea Esomeprazole Magnesium [Nexium] 40 mg PO DAILY #28 ecc Nitrofurantoin Macrocrystals [Macrobid] 100 mg PO BID #14 cap Ondansetron ODT [Zofran ODT] 4 mg PO Q6 PRN #16 odt PRN Reason: Nausea/Vomiting Instructions: Urinary Tract Infection in Women (ED), Gastroenteritis (ED) Forms: [employer] (French)
[2017-08-05 03:50] VITALS: BP 115/62; PULSE 73
== END 2017-08-05 03:21 | disposition home or self-care (01) ==
LOC: H.ER 23:00
DX: K52.9 Noninfective gastroenteritis and colitis, unspecified (principal); N39.0 Urinary tract infection, site not specified
CPT/HCPCS: 76705; 80053; 81003; 81025; 83690; 85025; 96361; 96374; 96375; 99283; J1885; J2405; J7040

== ENCOUNTER 2017-11-30 18:53 | Emergency (ER) | payer SELFPAY ==
[2017-11-30 18:53] VITALS: BMI 22.4
[2017-11-30 19:12] VITALS: BP 103/76; PULSE 89; RESP 18; TEMP 98.7; O2SAT 100
--- NOTE | 2017-11-30 20:32 | ED PDOC ---
HPI: General Adult Time Seen by Provider: 11/30/17 19:14 Chief Complaint (Nursing): Flu-like Symptoms Chief Complaint (Provider): Bodyaches, cough, fever, 103.8 at home History Per: Patient History/Exam Limitations: no limitations Onset/Duration Of Symptoms: Days Have you had recent travel within the past 21 days to any of the following countries: [place], [place], [place] or [place]?: No Current Symptoms Are (Timing): Still Present Additional Complaint(s): Today is the 4th day of symptoms. 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 Past Medical History Reviewed: Historical Data, Nursing Documentation, Vital Signs Vital Signs: Last Vital Signs Temp 98.7 F 11/30/17 19:08 Pulse 89 11/30/17 19:08 Resp 18 11/30/17 19:08 BP 103/76 11/30/17 19:08 Pulse Ox 100 11/30/17 19:08 - Medical History PMH: No Chronic Diseases Denies: Chronic Kidney Disease - Surgical History Surgical History: No Surg Hx - Family History Family History: States: Unknown Family Hx - Living Arrangements Living Arrangements: With Family - Social History Current smoker - smoking cessation education provided: No - Immunization History Hx Tetanus Toxoid Vaccination: No Hx Influenza Vaccination: No Hx Pneumococcal Vaccination: No - Home Medications Home Medications: Ambulatory Orders Medication Instructions Recorded Ciprofloxacin [Cipro] 500 mg PO BID #14 tab 11/10/16 Fluconazole [Diflucan] 150 mg PO ONCE #1 tab 04/06/17 Miconazole 2% [Miconazole 2% Cream] 1 ea EXT BID #1 tube 04/06/17 Dicyclomine [Bentyl] 20 mg PO Q12 PRN #20 tab 08/05/17 Esomeprazole Magnesium [Nexium] 40 mg PO DAILY #28 ecc 08/05/17 Nitrofurantoin Macrocrystals 100 mg PO BID #14 cap 08/05/17 [Macrobid] Ondansetron ODT [Zofran ODT] 4 mg PO Q6 PRN #16 odt 08/05/17 Promethazine HCl/Codeine 10 ml PO Q8H PRN #150 ml 11/30/17 [Prometh-Codein 6.25-10 mg/5 ml] - Allergies Allergies/Adverse Reactions: Allergies Allergy/AdvReac Type Severity Reaction Status Date / Time No Known Allergies Allergy Verified 08/04/17 23:10 Review of Systems ROS Statement: Except As Marked, All Systems Reviewed And Found Negative Constitutional: Positive for: Fever, Chills, Sweats, Malaise Cardiovascular: Negative for: Chest Pain Respiratory: Positive for: Cough. Negative for: Shortness of Breath Physical Exam - Reviewed Nursing Documentation Reviewed: Yes Vital Signs Reviewed: Yes - Physical Exam Appears: Positive for: Well, Non-toxic, No Acute Distress Head Exam: Positive for: ATRAUMATIC, NORMAL INSPECTION, NORMOCEPHALIC Skin: Positive for: Normal Color, Warm, DRY Eye Exam: Positive for: Normal appearance ENT: Positive for: Normal ENT Inspection Neck: Positive for: Normal, Painless ROM Cardiovascular/Chest: Positive for: Regular Rate, Rhythm Respiratory: Positive for: Normal Breath Sounds. Negative for: Accessory Muscle Use, Respiratory Distress Back: Positive for: Normal Inspection Extremity: Positive for: Normal ROM Neurologic/Psych: Positive for: Alert, Oriented - ECG O2 Sat by Pulse Oximetry: 100 Disposition - Clinical Impression Clinical Impression: Influenza - Patient ED Disposition Is Patient to be Admitted: No Counseled Patient/Family Regarding: Diagnosis, Need For Followup - Disposition Disposition: Routine/Home Disposition Time: 20:36 Condition: GOOD Prescriptions: Promethazine HCl/Codeine [Prometh-Codein 6.25-10 mg/5 ml] 10 ml PO Q8H PRN #150 ml PRN Reason: Cough Instructions: Influenza (ED) Forms: [employer] (Macedonian), [facility] ED School/Work Excuse
== END 2017-11-30 20:46 | disposition home or self-care (01) ==
LOC: H.ER 18:53
DX: J11.1 Influenza due to unidentified influenza virus with other respiratory manifestations (principal)

== ENCOUNTER 2018-01-14 15:53 | Emergency (ER) | payer SELFPAY ==
[2018-01-14 15:53] VITALS: BMI 22.4
[2018-01-14 16:15] VITALS: BP 110/74; PULSE 85; RESP 16; TEMP 98.1; O2SAT 100
--- NOTE | 2018-01-14 16:50 | ED PDOC ---
HPI: Eye Injury/Pain Time Seen by Provider: 01/14/18 16:23 Chief Complaint (Nursing): Eye Problem Chief Complaint (Provider): Right eye irritation History Per: Patient History/Exam Limitations: no limitations Onset/Duration Of Symptoms: Days Current Symptoms Are (Timing): Still Present Injury To Eye?: No Additional Complaint(s): 22yo female, presents to ED for evaluation of irritation and itchiness to her right eye. 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 She also reports noticing a white discharge from her eye this morning. She deneis any eye pain, foreign body sensation, or decreased vision. . Otherwise: (-) visual changes, (-) other injury, (-) contact lens. Past Medical History Reviewed: Historical Data, Nursing Documentation, Vital Signs Vital Signs: Last Vital Signs Temp 98.1 F 01/14/18 16:12 Pulse 85 01/14/18 16:12 Resp 16 01/14/18 16:12 BP 110/74 01/14/18 16:12 Pulse Ox 100 01/14/18 16:12 - Medical History PMH: No Chronic Diseases Denies: Chronic Kidney Disease - Surgical History Surgical History: No Surg Hx - Family History Family History: States: Unknown Family Hx - Immunization History Hx Tetanus Toxoid Vaccination: No Hx Influenza Vaccination: No Hx Pneumococcal Vaccination: No - Home Medications Home Medications: Ambulatory Orders Medication Instructions Recorded Ciprofloxacin [Cipro] 500 mg PO BID #14 tab 11/10/16 Fluconazole [Diflucan] 150 mg PO ONCE #1 tab 04/06/17 Miconazole 2% [Miconazole 2% Cream] 1 ea EXT BID #1 tube 04/06/17 Dicyclomine [Bentyl] 20 mg PO Q12 PRN #20 tab 08/05/17 Esomeprazole Magnesium [Nexium] 40 mg PO DAILY #28 ecc 08/05/17 Nitrofurantoin Macrocrystals 100 mg PO BID #14 cap 08/05/17 [Macrobid] Ondansetron ODT [Zofran ODT] 4 mg PO Q6 PRN #16 odt 08/05/17 Promethazine HCl/Codeine 10 ml PO Q8H PRN #150 ml 11/30/17 [Prometh-Codein 6.25-10 mg/5 ml] Cetirizine HCl [Zyrtec] 10 mg PO DAILY #30 capsule 01/14/18 Tobramycin 0.3% [Tobrex 0.3% Ophth 5 drop OU QID #1 bottle 01/14/18 Soln] - Allergies Allergies/Adverse Reactions: Allergies Allergy/AdvReac Type Severity Reaction Status Date / Time No Known Allergies Allergy Verified 01/14/18 16:12 Review of Systems ROS Statement: Except As Marked, All Systems Reviewed And Found Negative Constitutional: Negative for: Fever, Chills Eyes: Positive for: Other (right eye irritation). Negative for: Pain, Vision Change Physical Exam - Reviewed Nursing Documentation Reviewed: Yes Vital Signs Reviewed: Yes - Physical Exam Comments: GENERAL APPEARANCE: Patient is awake, alert, oriented x 3, in no acute distress. HEENT: (-) facial swelling and erythema, (-) facial blisters. LIDS & LASHES: Normal. PUPILS: Pupils equally round. reactive. EOM's: Intact. CONJUNCTIVAE: (-) injection. - ECG O2 Sat by Pulse Oximetry: 100 (RA) Pulse Ox Interpretation: Normal Medical Decision Making Medical Decision Making: Impression: Conjunctivitis Plan: -- Patient to be discharged home with Tobrex ophthlamic drops and Zyrtec. Advised to follow up with primary care physician in 1-2 days without fail. Advised to take medication as prescribed. Return to the emergency room at any time for any new or worsening symptoms. Patient states she fully agrees with and understands discharge instructions. States that she agrees with the plan and disposition. Verbalized and repeated discharge instructions and plan. I have given the patient opportunity to ask any additional questions. Scribe Attestation: Documented by Torie Laurent acting as a scribe for Michelle Fritz PA-C. Provider Attestation: All medical record entries made by the Scribe were at my direction and personally dictated by me. I have reviewed the chart and agree that the record accurately reflects my personal performance of the history, physical exam, medical decision making, and the department course for this patient. I have also personally directed, reviewed, and agree with the discharge instructions and disposition. Disposition - Clinical Impression Clinical Impression: Conjunctivitis - Disposition Disposition: Routine/Home Disposition Time: 16:40 Condition: STABLE Additional Instructions: Thank you for letting us take care of you today. You were treated for conjunctivitis. The emergency medical care you received today was directed at your acute symptoms. If you were prescribed any medication, please fill it and take as directed. It may take several days for your symptoms to resolve. Return to the Emergency Department if your symptoms worsen, do not improve, or if you have any other problems. Please contact your doctor in 2 days for re-evaluation and follow up. Bring any paperwork you were given at discharge with you along with any medications you are taking to your follow up visit. Our treatment cannot replace ongoing medical care by a primary care provider (PCP) outside of the emergency department. Thank you for allowing the [facility] team to be part of your care today. Prescriptions: Cetirizine HCl [Zyrtec] 10 mg PO DAILY #30 capsule Tobramycin 0.3% [Tobrex 0.3% Ophth Soln] 5 drop OU QID #1 bottle Instructions: Conjunctivitis ([place]) Forms: [employer] (Uzbek), [facility] ED School/Work Excuse
== END 2018-01-14 17:18 | disposition home or self-care (01) ==
LOC: H.ER 15:53
DX: H10.9 Unspecified conjunctivitis (principal)

== ENCOUNTER 2018-04-06 11:37 | Emergency (ER) | payer SELFPAY ==
[2018-04-06 11:38] VITALS: BMI 22.4
[2018-04-06 11:42] VITALS: RESP 18; TEMP 97.9
[2018-04-06 12:39] LABS: SQUAMOUS EPITHIAL 4 /hpf (0-5); URINE BACTERIA RARE (<OCC); URINE BILIRUBIN NEGATIVE (NEGATIVE); URINE BLOOD SMALL (NEGATIVE); URINE CLARITY CLEAR (Clear); URINE COLOR STRAW (YELLOW); URINE GLUCOSE (UA) NEG (Normal); URINE LEUKOCYTE ESTERASE NEG Leu/uL (Negative); URINE PROTEIN NEGATIVE (NEGATIVE); URINE UROBILINOGEN 0.2-1.0 mg/dL (0.2-1.0)
[2018-04-06 13:33] LABS: BASO % 0.5 % (0.0-2.0); EOS # 0.2 K/uL (0.0-0.7); EOS % 1.8 % (0.0-4.0); HEMOGLOBIN 14.2 g/dL (12.0-16.0); LYMPH # 2.6 K/uL (1.0-4.3); MEAN CORPUSCULAR HEMOGLOBIN 31.1 pg (27.0-31.0); MEAN CORPUSCULAR HGB CONC 35.4 g/dL (33.0-37.0); MEAN PLATELET VOLUME 8.6 fl (7.2-11.7); MONO # 0.6 K/uL (0.0-0.8); MONO % 6.6 % (0.0-10.0); NEUT # 5.6 K/uL (1.8-7.0); NEUT % 62.1 % (50.0-75.0); NRBC % 0.1 % (0.0-0.0); RBC 4.57 Mil/uL (3.80-5.20); RED CELL DISTRIBUTION WIDTH 12.6 % (11.5-14.5)
[2018-04-06 13:43] LABS: BLOOD UREA NITROGEN 9 mg/dl (7-17); CALCIUM 9.6 mg/dL (8.4-10.2); GFR AFRICAN-AMERICAN > 60; GFR NON-AFRICAN AMERICAN > 60
--- NOTE | 2018-04-06 14:18 | ED PDOC ---
HPI: Female Pain Time Seen by Provider: 04/06/18 11:57 Chief Complaint (Nursing): Female Genitourinary Chief Complaint (Provider): Lower Abdominal Pain History Per: Patient History/Exam Limitations: no limitations Onset/Duration Of Symptoms: Hrs Current Symptoms Are (Timing): Still Present Quality Of Discomfort: Pressure Associated Symptoms: denies: Fever, Chills, Nausea, Vomiting, Diarrhea, Back Pain Additional Complaint(s): 23 year old female presents to the emergency department complaining of lower abdominal pain which began this morning. Patient also reports that she also noticed some pink and brown vaginal discharge since yesterday. She states that the pain is pressure like and rates it as a 7/10. Patient further reports that she stopped taking her control 1.5 weeks ago. Denies fever, chills, nausea , vomiting, diarrhea, back pain, flank pain, chest pain, SOB. Also denies use of pads and tampons as she states that the bleeding was very mild. PM[facility] Last Menstral Period: 02/26/28 Past Medical History Reviewed: Historical Data, Nursing Documentation, Vital Signs Vital Signs: Last Vital Signs Temp 97.9 F 04/06/18 11:41 Pulse 80 04/06/18 11:41 Resp 18 04/06/18 11:41 BP 111/72 04/06/18 11:41 Pulse Ox 98 04/06/18 11:41 - Medical History PMH: No Chronic Diseases - Surgical History Other surgeries: Cyst removal from b/l breast - Family History Family History: States: Unknown Family Hx - Living Arrangements Living Arrangements: With Family - Social History Current smoker - smoking cessation education provided: Yes (2 cigarrettes per month) Alcohol: Social Drugs: Denies - Home Medications Home Medications: Ambulatory Orders Medication Instructions Recorded Ciprofloxacin [Cipro] 500 mg PO BID #14 tab 11/10/16 Fluconazole [Diflucan] 150 mg PO ONCE #1 tab 04/06/17 Miconazole 2% [Miconazole 2% Cream] 1 ea EXT BID #1 tube 04/06/17 Dicyclomine [Bentyl] 20 mg PO Q12 PRN #20 tab 08/05/17 Esomeprazole Magnesium [Nexium] 40 mg PO DAILY #28 ecc 08/05/17 Nitrofurantoin Macrocrystals 100 mg PO BID #14 cap 08/05/17 [Macrobid] Ondansetron ODT [Zofran ODT] 4 mg PO Q6 PRN #16 odt 08/05/17 Promethazine HCl/Codeine 10 ml PO Q8H PRN #150 ml 11/30/17 [Prometh-Codein 6.25-10 mg/5 ml] Cetirizine HCl [Zyrtec] 10 mg PO DAILY #30 capsule 01/14/18 Tobramycin 0.3% [Tobrex 0.3% Ophth 5 drop OU QID #1 bottle 01/14/18 Soln] Naproxen [Naprosyn] 500 mg PO BID PRN #20 tablet 04/06/18 - Allergies Allergies/Adverse Reactions: Allergies Allergy/AdvReac Type Severity Reaction Status Date / Time No Known Allergies Allergy Verified 04/06/18 11:49 Review of Systems ROS Statement: Except As Marked, All Systems Reviewed And Found Negative Constitutional: Negative for: Fever, Chills Gastrointestinal: Positive for: Abdominal Pain (lower). Negative for: Nausea, Vomiting, Diarrhea Genitourinary Female: Positive for: Vaginal Discharge (pink and brown). Negative for: Hematuria Musculoskeletal: Negative for: Back Pain Physical Exam - Reviewed Nursing Documentation Reviewed: Yes Vital Signs Reviewed: Yes - Physical Exam Comments: GENERAL APPEARANCE: Patient is awake, alert, oriented x 3, in no distress. Resting comfortably. SKIN: Warm, dry; (-) cyanosis. EYES: (-) conjunctival pallor, (-) scleral icterus. ENMT: Mucous membranes moist. NECK: Supple, FROM CHEST AND RESPIRATORY: (-) rales, (-) rhonchi, (-) wheezes; breath sounds equal bilaterally. Speaking in full sentences, respirations even and nonlabored. HEART AND CARDIOVASCULAR: (-) irregularity; (-) murmur, (-) gallop. ABDOMEN AND GI: (-) distention. Bowel sounds active x4, (+) mild suprapubic tenderness . (-) guarding, (-) rebound, (-) palpable masses, (-) CVA tenderness. PELVIC: normal external genitalia. (-) rash. (-) vesicles. (-) ulcers. Scant amount of pink and brown discharge from cervix. Vaginal canal unremarkable. Left sided adnexa tenderness. (-) cervical motion tenderness. EXTREMITIES: (-) deformity, (-) edema, (+) distal pulses. NEURO AND PSYCH: Mental status as above; (-) focal findings. Gait steady, speech clear. - Laboratory Results Result Diagrams: 04/06/18 13:20 04/06/18 13:20 Urine POC: Negative - ECG O2 Sat by Pulse Oximetry: 98 (RA) Pulse Ox Interpretation: Normal Medical Decision Making Medical Decision Makin Initial Impression Abdominal Pain and vaginal bleeding Initial Plan: * Type and Screen * BMP * Upreg * CBC * Chlamydia /GC RNA * Toradol 30mg IVP * Urine Culture * Urinalysis * US pelvis - r/o Ovarian Pathology * US transvaginal * Reevaluation Upreg in ED (-) Patient declined STD prophylaxis. 1435 Patient in U/S. Labs reviewed and grossly unremarkable. Urine with no evidence of UTI. 1447 HISTORY: abd pain, vag bleed, COMPARISON: Pelvic ultrasound dated 09/01/2017. TECHNIQUE: Grayscale, color Doppler and spectral evaluation the pelvis performed transvaginally FINDINGS: UTERUS: Measures 8.0 x 2.7 x 4.4 cm. Normal in size and appearance. No fibroid or other mass lesion seen. ENDOMETRIUM: Measures 6 mm in diameter. Unremarkable. CERVIX: No cervical abnormality identified. RIGHT OVARY: Measures 1.8 x 1.1 x 1.4 cm. No solid mass. Normal flow. LEFT OVARY: Measures 3.8 x 2.6 x 3.5 cm. 3.3 x 2.2 x 3.3 cm cyst. Normal flow. FREE FLUID: Small to moderate free fluid noted, likely physiologic. OTHER FINDINGS: None. IMPRESSION: Left ovarian 3.3 cm cyst. Small to moderate fluid fluid, likely physiologic. Otherwise, unremarkable pelvic ultrasound. 1510 On re-evaluation, patient reports improvement of symptoms, denies any abdominal pain at present. On exam, patient remains AAOx3, in no acute distress. Lungs clear to auscultation, cardiac RRR, abdomen soft, non-tender, repeat neuro exam shows no focal findings. Hemodynamically stable, appropriate for outpatient OBGYN follow up. Lab / Diagnostic results d/w the patient in great detail. Diagnosis of abdominal pain, vaginal bleeding, ovarian cust d/w the patient. Based on history, exam and diagnostic results, plan will be for outpatient follow up. Patient instructed to follow-up with pmd / referral provided / the clinic in 1- 2 days without fail. Advised to take medication as prescribed. Return to the emergency room at any time for any new or worsening symptoms. Patient states she fully agrees with and understands discharge instructions. States that she agrees with the plan and disposition. Verbalized and repeated discharge instructions and plan. I have given the patient opportunity to ask any additional questions. -------- Documented by Roxy Valdivia acting as a scribe for Suze Dc PA-C. All medical record entries made by the Scribe were at my direction and personally dictated by me. I have reviewed the chart and agree that the record accurately reflects my personal performance of the history, physical exam, medical decision making, and the department course for this patient. I have also personally directed, reviewed, and agree with the discharge instructions and disposition. Disposition - Clinical Impression Clinical Impression: Ovarian cyst, Lower abdominal pain, Vaginal bleeding - Patient ED Disposition Is Patient to be Admitted: No Counseled Patient/Family Regarding: Studies Performed, Diagnosis, Need For Followup, Rx Given - Disposition Referrals: Ham Tamayo MD [Staff Provider] - Disposition: Routine/Home Disposition Time: 15:13 Condition: STABLE Additional Instructions: FOLLOW UP WITH PMD/[facility] IN 1-2 DAYS FOR FURTHER EVALUATION. RETURN TO ED WITH ANY NEW OR WORSENING SYMPTOMS. TAKE MEDICATION NEEDED FOR DISCOMFORT. Prescriptions: Naproxen [Naprosyn] 500 mg PO BID PRN #20 tablet PRN Reason: Pain, Moderate (4-7) Instructions: Ovarian Cysts, Acute Abdomen (Belly Pain) Forms: [employer] (Austrian) Print Language: YI - POA Present On Arrival: None Results - Lab Results Lab Results: 04/06/18 04/06/18 04/06/18 13:48 13:20 13:20 WBC 9.0 RBC 4.57 Hgb 14.2 Hct 40.2 MCV 88.0 MCH 31.1 H MCHC 35.4 RDW 12.6 Plt Count 255 MPV 8.6 Neut % (Auto) 62.1 Lymph % (Auto) 29.0 [place] % (Auto) 6.6 Eos % (Auto) 1.8 Baso % (Auto) 0.5 Neut # (Auto) 5.6 Lymph # (Auto) 2.6 [place] # (Auto) 0.6 Eos # (Auto) 0.2 Baso # (Auto) 0.0 Sodium Potassium Chloride Carbon Dioxide Anion Gap BUN Creatinine Est GFR ( Amer) Est GFR (Non-Af Amer) Random Glucose Calcium Urine Color Urine Clarity Urine pH Ur Specific [place] Urine Protein Urine Glucose (UA) Urine Ketones Urine Blood Urine Nitrate Urine Bilirubin Urine Urobilinogen Ur Leukocyte Esterase Urine RBC (Auto) Urine Microscopic WBC Ur Squamous Epith Cells Urine Bacteria Blood Type O POSITIVE Blood Type Confirm O POSITIVE Antibody Screen Negative BBK History Checked No verified bt 04/06/18 04/06/18 13:20 12:17 WBC RBC Hgb Hct MCV MCH MCHC RDW Plt Count MPV Neut % (Auto) Lymph % (Auto) [place] % (Auto) Eos % (Auto) Baso % (Auto) Neut # (Auto) Lymph # (Auto) [place] # (Auto) Eos # (Auto) Baso # (Auto) Sodium 138 Potassium 4.2 Chloride 102 Carbon Dioxide 28 Anion Gap 12 BUN 9 Creatinine 0.6 L Est GFR ( Amer) > 60 Est GFR (Non-Af Amer) > 60 Random Glucose 93 Calcium 9.6 Urine Color Straw Urine Clarity Clear Urine pH 7.0 Ur Specific [place] < 1.005 Urine Protein Negative Urine Glucose (UA) Neg Urine Ketones Negative Urine Blood Small Urine Nitrate Negative Urine Bilirubin Negative Urine Urobilinogen 0.2-1.0 Ur Leukocyte Esterase Neg Urine RBC (Auto) < 1 Urine Microscopic WBC < 1 Ur Squamous Epith Cells 4 Urine Bacteria Rare Blood Type Blood Type Confirm Antibody Screen BBK History Checked
--- NOTE | 2018-04-06 14:48 | US ---
HISTORY: abd pain, vag bleed, COMPARISON: Pelvic ultrasound dated 09/01/2017. TECHNIQUE: Grayscale, color Doppler and spectral evaluation the pelvis performed transvaginally FINDINGS: UTERUS: Measures 8.0 x 2.7 x 4.4 cm. Normal in size and appearance. No fibroid or other mass lesion seen. ENDOMETRIUM: Measures 6 mm in diameter. Unremarkable. CERVIX: No cervical abnormality identified. RIGHT OVARY: Measures 1.8 x 1.1 x 1.4 cm. No solid mass. Normal flow. LEFT OVARY: Measures 3.8 x 2.6 x 3.5 cm. 3.3 x 2.2 x 3.3 cm cyst. Normal flow. FREE FLUID: Small to moderate free fluid noted, likely physiologic. OTHER FINDINGS: None. IMPRESSION: Left ovarian 3.3 cm cyst. Small to moderate fluid fluid, likely physiologic. Otherwise, unremarkable pelvic ultrasound.
[2018-04-06 15:30] VITALS: BP 104/58; PULSE 77
[2018-04-08 00:17] VITALS: O2SAT 98
== END 2018-04-06 15:27 | disposition home or self-care (01) ==
LOC: H.ER 11:37
DX: N83.202 Unspecified ovarian cyst, left side (principal); N93.9 Abnormal uterine and vaginal bleeding, unspecified; R10.30 Lower abdominal pain, unspecified
CPT/HCPCS: 76830; 80048; 81003; 81025; 85025; 86850; 86900; 87086; 87491; 87591; 96374; 99285; J1885

== ENCOUNTER 2018-07-15 11:33 | Emergency (ER) | payer SELFPAY ==
[2018-07-15 11:44] VITALS: BMI 23.4
[2018-07-15 11:46] VITALS: BP 98/69; PULSE 75; RESP 18; TEMP 98.6; O2SAT 98
[2018-07-15 13:15] LABS: SQUAMOUS EPITHIAL 1 /hpf (0-5); URINE BILIRUBIN NEGATIVE (NEGATIVE); URINE BLOOD NEGATIVE (NEGATIVE); URINE CLARITY SLIGHTY-CLOUDY (Clear); URINE COLOR YELLOW (YELLOW); URINE GLUCOSE (UA) NEG (Normal); URINE LEUKOCYTE ESTERASE NEG Leu/uL (Negative); URINE PROTEIN NEGATIVE (NEGATIVE); URINE UROBILINOGEN 0.2-1.0 mg/dL (0.2-1.0)
[2018-07-15 13:20] LABS: BASO % 0.5 % (0.0-2.0); EOS # 0.1 K/uL (0.0-0.7); EOS % 1.3 % (0.0-4.0); HEMOGLOBIN 13.8 g/dL (12.0-16.0); LYMPH # 2.6 K/uL (1.0-4.3); LYMPH % 36.2 % (20.0-40.0); MEAN CELL VOLUME 88.4 fl (81.0-99.0); MEAN CORPUSCULAR HEMOGLOBIN 31.3 pg (27.0-31.0); MEAN CORPUSCULAR HGB CONC 35.5 g/dL (33.0-37.0); MEAN PLATELET VOLUME 8.8 fl (7.2-11.7); MONO # 0.4 K/uL (0.0-0.8); MONO % 5.6 % (0.0-10.0); NEUT # 4.1 K/uL (1.8-7.0); NEUT % 56.4 % (50.0-75.0); NRBC % 0.1 % (0.0-0.0); RBC 4.4 Mil/uL (3.80-5.20); RED CELL DISTRIBUTION WIDTH 12.5 % (11.5-14.5); WHITE BLOOD COUNT 7.2 K/uL (4.8-10.8)
[2018-07-15 13:25] LABS: PROTHROMBIN TIME 11.5 Seconds (9.8-13.1)
[2018-07-15 13:51] LABS: ALB/GLOB RATIO 1.6 (1.0-2.1); ALBUMIN 4.5 g/dL (3.5-5.0); ALT/SGPT 36 U/L (9-52); AST/SGOT 29 U/L (14-36); BLOOD UREA NITROGEN 6 mg/dl (7-17); CALCIUM 9.6 mg/dL (8.4-10.2); GFR NON-AFRICAN AMERICAN > 60
--- NOTE | 2018-07-15 15:20 | ED PDOC ---
HPI: Abdomen Time Seen by Provider: 07/15/18 11:50 Chief Complaint (Nursing): GI Problem History Per: Patient Additional Complaint(s): Pt. states for the past week she's had bright red rectal bleeding that occurs only with hard BM's. She's noticed that she's had intermittent episodes of constipation. States she's also had RLQ pain that began with the bleeding and is still present but has improved since her last ED visit. Today she had 2 episodes of bright red bloody stools with hard and small BM's. Today she also developed dysuria at the end of micturition. Pt. states she also now has developed rectal pain. Denies trauma, vomiting, diarrhea, hematuria, frequency, urgency, fever, back pain, flank pain. Past Medical History Reviewed: Historical Data, Nursing Documentation, Vital Signs Vital Signs: Last Vital Signs Temp 98.6 F 07/15/18 11:44 Pulse 75 07/15/18 11:44 Resp 18 07/15/18 11:44 BP 98/69 L 07/15/18 11:44 Pulse Ox 98 07/15/18 15:33 - Medical History PMH: Denies: Chronic Kidney Disease - Surgical History Surgical History: No Surg Hx - Family History Family History: States: No Known Family Hx - Immunization History Hx Tetanus Toxoid Vaccination: No Hx Influenza Vaccination: No Hx Pneumococcal Vaccination: No - Home Medications Home Medications: Ambulatory Orders Medication Instructions Recorded Ciprofloxacin [Cipro] 500 mg PO BID #14 tab 11/10/16 Fluconazole [Diflucan] 150 mg PO ONCE #1 tab 04/06/17 Miconazole 2% [Miconazole 2% Cream] 1 ea EXT BID #1 tube 04/06/17 Dicyclomine [Bentyl] 20 mg PO Q12 PRN #20 tab 08/05/17 Esomeprazole Magnesium [Nexium] 40 mg PO DAILY #28 ecc 08/05/17 Nitrofurantoin Macrocrystals 100 mg PO BID #14 cap 08/05/17 [Macrobid] Ondansetron ODT [Zofran ODT] 4 mg PO Q6 PRN #16 odt 08/05/17 Promethazine HCl/Codeine 10 ml PO Q8H PRN #150 ml 11/30/17 [Prometh-Codein 6.25-10 mg/5 ml] Cetirizine HCl [Zyrtec] 10 mg PO DAILY #30 capsule 01/14/18 Tobramycin 0.3% [Tobrex 0.3% Ophth 5 drop OU QID #1 bottle 01/14/18 Soln] Naproxen [Naprosyn] 500 mg PO BID PRN #20 tablet 04/06/18 Dicyclomine [Bentyl] 20 mg PO QID PRN #30 tab 07/09/18 Saccharomyces Boulardi [Florastor] 500 mg PO BID #28 cap 07/09/18 Hard Fat/Phenylephrine Viola 1 sup RC BID PRN #6 sup 07/15/18 [Anusol Suppository] - Allergies Allergies/Adverse Reactions: Allergies Allergy/AdvReac Type Severity Reaction Status Date / Time No Known Allergies Allergy Verified 07/15/18 12:37 Review of Systems ROS Statement: Except As Marked, All Systems Reviewed And Found Negative Gastrointestinal: Positive for: Abdominal Pain, Constipation, Rectal Pain Physical Exam - Physical Exam Appears: Positive for: Well, Non-toxic, No Acute Distress Skin: Positive for: Normal Color, Warm. Negative for: Rash Eye Exam: Positive for: Normal appearance. Negative for: Scleral icterus Neck: Positive for: Normal, Painless ROM Cardiovascular/Chest: Positive for: Regular Rate, Rhythm Respiratory: Positive for: Normal Breath Sounds Gastrointestinal/Abdominal: Positive for: Normal Exam, Bowel Sounds, Soft. Negative for: Tenderness Rectal: Positive for: Rectal Tone Is: (intact), Hemorrhoids (internal hemorrhoids noted), Tenderness (during MANJU). Negative for: Black Stool, Blood Streaked Stool, Mass Neurologic/Psych: Positive for: Alert, Oriented (x3), Gait. Negative for: Aphasia, Facial Droop - Laboratory Results Result Diagrams: 07/15/18 13:10 07/15/18 13:10 Urine POC: Negative - ECG O2 Sat by Pulse Oximetry: 98 - Progress ED Course And Treament: Case d/w Dr. Echevarria who agrees with care and plan. Pt. informed of results and advised to f/u with GI for further evaluation. Agrees with plan. Disposition - Clinical Impression Clinical Impression: Internal hemorrhoids - Patient ED Disposition Is Patient to be Admitted: No - Disposition Referrals: Barbara Perez MD [Medical Doctor] - Disposition: Routine/Home Disposition Time: 15:30 Condition: STABLE Additional Instructions: SRINATH CHAPARRO, thank you for letting us take care of you today. Your provider was Tracy Echevarria MD and you were treated for BLOOD IN STOOL. The emergency medical care you received today was directed at your acute symptoms. If you were prescribed any medication, please fill it and take as directed. It may take several days for your symptoms to resolve. Return to the Emergency Department if your symptoms worsen, do not improve, or if you have any other problems. Please contact your doctor or call one of the physicians/clinics you have been referred to that are listed on the Patient Visit Information form that is included in your discharge packet. Bring any paperwork you were given at discharge with you along with any medications you are taking to your follow up visit. Our treatment cannot replace ongoing medical care by a primary care provider outside of the emergency department. Thank you for allowing the [facility] team to be part of your care today. If you had an X-Ray or CT scan: A Radiologist will review the ED reading if any change in treatment is needed we will contact you. If you had a blood, urine, or wound culture: It will take several days for the results, if any change in treatment is needed we will contact you. If you had an STI test: It will take 48 hours for the results. Please call after 1 week if you have not heard back. Prescriptions: Hard Fat/Phenylephrine Viola [Anusol Suppository] 1 sup RC BID PRN #6 sup PRN Reason: Hemorrhoids Instructions: Hemorrhoids (DC) Forms: [employer] (Korean), [facility] ED School/Work Excuse
== END 2018-07-15 16:10 | disposition home or self-care (01) ==
LOC: H.ER 11:33
DX: K64.8 Other hemorrhoids (principal)
CPT/HCPCS: 80053; 81003; 81025; 85025; 85610; 85730; 86850; 86900; 99283; G0328

== ENCOUNTER 2018-10-14 09:22 | Emergency (ER) | payer OTHER ==
[2018-10-14 09:24] VITALS: BMI 23.0
[2018-10-14 09:26] VITALS: RESP 18; TEMP 98.2; O2SAT 99
--- NOTE | 2018-10-14 10:30 | ED PDOC ---
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 Patient's temperature indicated a 101 fever yesterday and patient woke up with painful breathing this morning. 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 Patient denies nausea, vomiting, and diarrhea. PMD: Non [facility] Provider Past Medical History Reviewed: Historical Data, Nursing Documentation, Vital Signs Vital Signs: Last Vital Signs Temp 98.2 F 10/14/18 09:25 Pulse 86 10/14/18 09:25 Resp 18 10/14/18 09:25 BP 104/58 L 10/14/18 09:25 Pulse Ox 99 10/14/18 09:25 - Medical History PMH: No Chronic Diseases Denies: Chronic Kidney Disease - Surgical History Surgical History: No Surg Hx - Family History Family History: States: Unknown Family Hx - Immunization History Hx Tetanus Toxoid Vaccination: No Hx Influenza Vaccination: No Hx Pneumococcal Vaccination: No - Home Medications Home Medications: Ambulatory Orders Medication Instructions Recorded RX: Ciprofloxacin [Cipro] 500 mg PO BID #14 tab 11/10/16 Fluconazole [Diflucan] 150 mg PO ONCE #1 tab 04/06/17 Miconazole 2% [Miconazole 2% Cream] 1 ea EXT BID #1 tube 04/06/17 Dicyclomine [Bentyl] 20 mg PO Q12 PRN #20 tab 08/05/17 Esomeprazole Magnesium [Nexium] 40 mg PO DAILY #28 ecc 08/05/17 Nitrofurantoin Macrocrystals 100 mg PO BID #14 cap 08/05/17 [Macrobid] Ondansetron ODT [Zofran ODT] 4 mg PO Q6 PRN #16 odt 08/05/17 Promethazine HCl/Codeine 10 ml PO Q8H PRN #150 ml 11/30/17 [Prometh-Codein 6.25-10 mg/5 ml] Cetirizine HCl [Zyrtec] 10 mg PO DAILY #30 capsule 01/14/18 RX: Tobramycin 0.3% [Tobrex 0.3% 5 drop OU QID #1 bottle 01/14/18 Ophth Soln] Naproxen [Naprosyn] 500 mg PO BID PRN #20 tablet 04/06/18 Dicyclomine [Bentyl] 20 mg PO QID PRN #30 tab 07/09/18 Saccharomyces Boulardi [Florastor] 500 mg PO BID #28 cap 07/09/18 Hard Fat/Phenylephrine [place] 1 sup RC BID PRN #6 sup 07/15/18 [Anusol Suppository] Benzonatate [Tessalon Perles] 100 mg PO TID #21 sgl 10/14/18 - Allergies Allergies/Adverse Reactions: Allergies Allergy/AdvReac Type Severity Reaction Status Date / Time No Known Allergies Allergy Verified 07/15/18 12:37 Review of Systems ROS Statement: Except As Marked, All Systems Reviewed And Found Negative Constitutional: Positive for: Fever, Other (cough, throat pain and ear pain) ENT: Positive for: Ear Pain, Throat Pain Respiratory: Positive for: Cough Gastrointestinal: Negative for: Nausea, Vomiting, Diarrhea Physical Exam - Reviewed Nursing Documentation Reviewed: Yes Vital Signs Reviewed: Yes - Physical Exam Appears: Positive for: Non-toxic, In Acute Distress Head Exam: Positive for: ATRAUMATIC, NORMAL INSPECTION, NORMOCEPHALIC Skin: Positive for: Normal Color, Warm, Dry Eye Exam: Positive for: Normal appearance ENT: Positive for: Normal ENT Inspection, TM Is/Are (without erythema or bulging), Other (oropharynx is mildly erythematous). Negative for: Tonsillar Exudate, Tonsillar Swelling Cardiovascular/Chest: Positive for: Regular Rate, Rhythm. Negative for: Murmur Respiratory: Positive for: Normal Breath Sounds Medical Decision Making Medical Decision Making: MDM: workup for influenza vs other upper respiratory infections Patient will most likely be discharged home Medications pending results 10:40 CXR normal. Influenza negative. Pt without abnormalities on physical exam. Pt to be discharged home with rx for tessla perles and work note. Return parameters discussed. Scribe Attestation: Documented by Koki Mar acting as a scribe for Suze Farr MD Provider Scribe Attestation: All medical record entries made by the Scribe were at my direction and personally dictated by me. I have reviewed the chart and agree that the record accurately reflects my personal performance of the history, physical exam, medical decision making, and the department course for this patient. I have also personally directed, reviewed, and agree with the discharge instructions and disposition. - ECG O2 Sat by Pulse Oximetry: 99 (RA) Pulse Ox Interpretation: Normal Disposition - Clinical Impression Clinical Impression: Cough, Common cold, Influenza - Disposition Disposition Time: 10:50 Condition: STABLE Additional Instructions: Take cold medicine as needed for symptoms. Increase water and rest while symptoms last. Return to the emergency department if symptoms worsen or if new symptoms develop. Prescriptions: Benzonatate [Tessalon Perles] 100 mg PO TID #21 sgl Instructions: Viral Upper Respiratory Infection, Adult (DC) Forms: [employer] (Polish), [facility] ED School/Work Excuse Print Language: BELGIAN
[2018-10-14 11:18] VITALS: BP 110/69; PULSE 68
--- NOTE | 2018-10-14 11:35 | RAD ---
Date of service: 10/14/2018 HISTORY: cough, SOB COMPARISON: No prior. FINDINGS: LUNGS: No active pulmonary disease. PLEURA: No significant pleural effusion identified, no pneumothorax apparent. CARDIOVASCULAR: No aortic atherosclerotic calcification present. Normal cardiac size. No pulmonary vascular congestion. OSSEOUS STRUCTURES: No significant abnormalities. VISUALIZED UPPER ABDOMEN: Normal. OTHER FINDINGS: None. IMPRESSION: No acute cardiopulmonary disease appreciated.
== END 2018-10-14 11:18 | disposition home or self-care (01) ==
LOC: H.ER 09:22
DX: R05 Cough (principal); J11.1 Influenza due to unidentified influenza virus with other respiratory manifestations

== ENCOUNTER 2018-12-21 17:21 | Emergency (ER) | payer OTHER ==
[2018-12-21 17:21] VITALS: BMI 23.0
[2018-12-21 18:02] VITALS: BP 128/75; PULSE 75; RESP 18; TEMP 98.5; O2SAT 100
--- NOTE | 2018-12-21 19:17 | ED PDOC ---
HPI: Headache Time Seen by Provider: 12/21/18 18:42 Chief Complaint (Nursing): Headache Chief Complaint (Provider): Headache History Per: Patient History/Exam Limitations: no limitations Onset/Duration Of Symptoms: Days (x2 weeks) Current Symptoms Are (Timing): Still Present Associated Symptoms: denies: Photophobia, Nausea, Vomiting Additional Complaint(s): Paola Alcantar is a 23 year old female, with no significant past medical history, who presents to the emergency department complaining of a headache and neck pain ongoing for x2 weeks. Patient states pain initially started in her head but has radiated to neck, upper back/shoulders. Patient describes the pain as a cramping/tightness sensation and states headache and upper back pain is exacerbated with movement of the neck. She took Advil yesterday with temporary relief but none today. She has no history of headaches. 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 She denies any fever, chills, cough, congestion, ear/throat pain, trauma/falls, nausea, vomit, diarrhea, phonophobia, photophobia, weakness, numbness, tingling, visual changes, abdominal pain or recent travel. No sick contacts. LMP was on 12/02/18. PMD: Dr. Ant Phoenix Past Medical History Reviewed: Historical Data, Nursing Documentation, Vital Signs Vital Signs: Last Vital Signs Temp 98.5 F 12/21/18 18:00 Pulse 75 12/21/18 18:00 Resp 18 12/21/18 18:00 BP 128/75 12/21/18 18:00 Pulse Ox 100 12/21/18 18:00 - Medical History PMH: No Chronic Diseases - Surgical History Other surgeries: left breast cyst removal - Family History Family History: States: Unknown Family Hx - Social History Current smoker - smoking cessation education provided: Yes (Light smoker) Alcohol: Occasional Drugs: Denies - Home Medications Home Medications: Ambulatory Orders Medication Instructions Recorded RX: Ciprofloxacin [Cipro] 500 mg PO BID #14 tab 11/10/16 Fluconazole [Diflucan] 150 mg PO ONCE #1 tab 04/06/17 Miconazole 2% [Miconazole 2% Cream] 1 ea EXT BID #1 tube 04/06/17 Dicyclomine [Bentyl] 20 mg PO Q12 PRN #20 tab 08/05/17 Esomeprazole Magnesium [Nexium] 40 mg PO DAILY #28 ecc 08/05/17 Nitrofurantoin Macrocrystals 100 mg PO BID #14 cap 08/05/17 [Macrobid] Ondansetron ODT [Zofran ODT] 4 mg PO Q6 PRN #16 odt 08/05/17 Promethazine HCl/Codeine 10 ml PO Q8H PRN #150 ml 11/30/17 [Prometh-Codein 6.25-10 mg/5 ml] Cetirizine HCl [Zyrtec] 10 mg PO DAILY #30 capsule 01/14/18 RX: Tobramycin 0.3% [Tobrex 0.3% 5 drop OU QID #1 bottle 01/14/18 Ophth Soln] Naproxen [Naprosyn] 500 mg PO BID PRN #20 tablet 04/06/18 Dicyclomine [Bentyl] 20 mg PO QID PRN #30 tab 07/09/18 Saccharomyces Boulardi [Florastor] 500 mg PO BID #28 cap 07/09/18 Hard Fat/Phenylephrine [place] 1 sup RC BID PRN #6 sup 07/15/18 [Anusol Suppository] Benzonatate [Tessalon Perles] 100 mg PO TID #21 sgl 10/14/18 Cyclobenzaprine [Flexeril] 5 mg PO Q8 PRN #12 tab 12/21/18 RX: Naproxen 500 mg PO BID PRN #20 tab 12/21/18 - Allergies Allergies/Adverse Reactions: Allergies Allergy/AdvReac Type Severity Reaction Status Date / Time No Known Allergies Allergy Verified 12/21/18 18:00 Review of Systems ROS Statement: Except As Marked, All Systems Reviewed And Found Negative Constitutional: Negative for: Fever, Chills Respiratory: Negative for: Cough Gastrointestinal: Negative for: Nausea, Vomiting, Abdominal Pain, Diarrhea Musculoskeletal: Positive for: Neck Pain, Back Pain (upper) Neurological: Positive for: Headache. Negative for: Weakness, Numbness (tingling) Physical Exam - Reviewed Nursing Documentation Reviewed: Yes Vital Signs Reviewed: Yes - Physical Exam Comments: GENERAL APPEARANCE: Patient is awake, alert, oriented x 3, in no acute distress. Resting comfortably. SKIN: Warm, dry; (-) cyanosis; (-) rash. HEAD: (+) occipital scalp tenderness, (-) temporal artery tenderness. EYES: (-) conjunctival injection ENMT: (-) sinus tenderness; mucous membranes are moist. NECK: Supple, FROM (+) bilateral paracervical tenderness, (-) stiffness, (-) meningismus, (-) lymphadenopathy. CHEST AND RESPIRATORY: (-) rales, (-) rhonchi, (-) wheezes; breath sounds equal bilaterally. Respirations even and nonlabored. HEART AND CARDIOVASCULAR: (-) irregularity ABDOMEN AND GI: Soft; (-) tenderness. BACK: (+) bilateral parathoracic tenderness (-) midline tenderness EXTREMITIES: (+) bilateral shoulder and trapezius tenderness with (+) muscle spasm. FROM (-) deformity. NEURO AND PSYCH: Mental status as above. director of epidemiology: Intact. Pupils equal and reactive; EOMI and painless; (-) facial asymmetry; tongue and uvula midline. Strength and sensation symmetric. Gait: steady. Speech: clear. Cerebellar tests normal. - Laboratory Results Urine POC: Negative - ECG O2 Sat by Pulse Oximetry: 100 (RA) Pulse Ox Interpretation: Normal Medical Decision Making Medical Decision Making: Time: 18:45 Initial Impression: Tension headache, muscle spasm of neck/shoulder Initial Plan: --Urine --Flexeril 10 mg PO (not driving home) --Toradol 30 mg IM --Reevaluation Upreg: negative 2009 On re-evaluation, patient reports improvement of symptoms, denies headache at present. On exam, patient remains AAOx3, in no acute distress. Vitals stable. Lab/Diagnostic results d/w the patient in great detail. Diagnosis of acute tension headache, acute neck/shoulder muscle spasm d/w the patient. Based on history, exam and diagnostic results, plan will be for outpatient follow up. Patient instructed to follow-up with pmd / referral provided / the clinic in 1- 2 days without fail. Advised to take medication as prescribed. Return to the emergency room at any time for any new or worsening symptoms. Patient states she fully agrees with and understands discharge instructions. States that she agrees with the plan and disposition. Verbalized and repeated discharge instructions and plan. I have given the patient opportunity to ask any additional questions. ----- Scribe Attestation: Documented by Scot Camejo, acting as a scribe for Suze Dc PA-C. Provider Scribe Attestation: All medical record entries made by the Scribe were at my direction and personally dictated by me. I have reviewed the chart and agree that the record accurately reflects my personal performance of the history, physical exam, medical decision making, and the department course for this patient. I have also personally directed, reviewed, and agree with the discharge instructions and disposition. Disposition - Clinical Impression Clinical Impression: Tension headache, Muscle spasms of neck, Neck pain, Shoulder pain, acute, Muscle spasm of shoulder region - Patient ED Disposition Is Patient to be Admitted: No Counseled Patient/Family Regarding: Studies Performed, Diagnosis, Need For Followup, Rx Given - Disposition Referrals: primary, doctor [Other] Disposition: Routine/Home Disposition Time: 20:10 Condition: STABLE Additional Instructions: The emergency medical care you received today was directed at your acute symptoms. If you were prescribed any medication, please fill it and take as directed. It may take several days for your symptoms to resolve. Return to the Emergency Department if your symptoms worsen, do not improve, or if you have any other problems. Please contact your doctor in 2 days for re-evaluation and follow up / or call one of the physicians/clinics you have been referred to that are listed on the Patient Visit Information form that is included in your discharge packet. Bring any paperwork you were given at discharge with you along with any medications y ou are taking to your follow up visit. Our treatment cannot replace ongoing medical care by a primary care provider (PCP) outside of the emergency department. Prescriptions: Cyclobenzaprine [Flexeril] 5 mg PO Q8 PRN #12 tab PRN Reason: Muscle Spasm RX: Naproxen 500 mg PO BID PRN #20 tab PRN Reason: pain/headache Instructions: Tension Headache, Muscle Spasms (DC), Muscle and Bone Pain (DC), Generalized Neck Pain, Shoulder Pain (DC) Forms: [email or web address] (Afghan) Print Language: BURMESE - POA Present On Arrival: None
== END 2018-12-21 21:16 | disposition home or self-care (01) ==
LOC: H.ER 17:21
DX: G44.209 Tension-type headache, unspecified, not intractable (principal); M62.838 Other muscle spasm; M25.519 Pain in unspecified shoulder; F17.200 Nicotine dependence, unspecified, uncomplicated
CPT/HCPCS: 96372; 99285; J1885

== ENCOUNTER 2019-02-04 11:11 | Emergency (ER) | payer OTHER ==
[2019-02-04 11:19] VITALS: BMI 23.4
[2019-02-04 11:20] VITALS: BP 108/72; RESP 19; TEMP 98.5; O2SAT 100
--- NOTE | 2019-02-04 13:00 | ED PDOC ---
HPI: Chest Pain Time Seen by Provider: 02/04/19 11:23 Chief Complaint (Nursing): Chest Pain Chief Complaint (Provider): Chest Pain History Per: Patient History/Exam Limitations: no limitations Onset/Duration Of Symptoms: Days (x1), Intermittent Episodes Current Symptoms Are (Timing): Still Present Additional Complaint(s): 23 year old female with past history of anxiety, presents to the emergency department with a complaint of non-radiating, atraumatic, midsternal chest pain described as "heaviness" since waking up at 0100 earlier this morning. Patient states symptoms resolved spontaneously then returned approximately at 0900 today, prompting ED visit. She admits to feeling anxious but states it is due to feeling short of breath. Otherwise, she denies fever, chills, cough, diaphoresis, leg pain, leg swelling, recent surgery, history of DVT or PE. Of note, patient reports daily use of oral contraceptives. PCP: none provided Past Medical History Reviewed: Historical Data, Nursing Documentation, Vital Signs Vital Signs: Last Vital Signs Temp 98.5 F 02/04/19 11:19 Pulse 81 02/04/19 11:19 Resp 19 02/04/19 11:19 BP 108/72 02/04/19 11:19 Pulse Ox 100 02/04/19 11:19 - Medical History PMH: Anxiety Denies: Chronic Kidney Disease - Family History Family History: States: Unknown Family Hx - Immunization History Hx Tetanus Toxoid Vaccination: No Hx Influenza Vaccination: No Hx Pneumococcal Vaccination: No - Home Medications Home Medications: Ambulatory Orders Medication Instructions Recorded Ciprofloxacin [Cipro] 500 mg PO BID #14 tab 11/10/16 Fluconazole [Diflucan] 150 mg PO ONCE #1 tab 04/06/17 Miconazole 2% [Miconazole 2% Cream] 1 ea EXT BID #1 tube 04/06/17 Dicyclomine [Bentyl] 20 mg PO Q12 PRN #20 tab 08/05/17 Esomeprazole Magnesium [Nexium] 40 mg PO DAILY #28 ecc 08/05/17 Nitrofurantoin Macrocrystals 100 mg PO BID #14 cap 08/05/17 [Macrobid] Ondansetron ODT [Zofran ODT] 4 mg PO Q6 PRN #16 odt 08/05/17 Promethazine HCl/Codeine 10 ml PO Q8H PRN #150 ml 11/30/17 [Prometh-Codein 6.25-10 mg/5 ml] Cetirizine HCl [Zyrtec] 10 mg PO DAILY #30 capsule 01/14/18 Tobramycin 0.3% [Tobrex 0.3% Ophth 5 drop OU QID #1 bottle 01/14/18 Soln] Naproxen [Naprosyn] 500 mg PO BID PRN #20 tablet 04/06/18 Dicyclomine [Bentyl] 20 mg PO QID PRN #30 tab 07/09/18 Saccharomyces Boulardi [Florastor] 500 mg PO BID #28 cap 07/09/18 Hard Fat/Phenylephrine [place] 1 sup RC BID PRN #6 sup 07/15/18 [Anusol Suppository] Benzonatate [Tessalon Perles] 100 mg PO TID #21 sgl 10/14/18 Cyclobenzaprine [Flexeril] 5 mg PO Q8 PRN #12 tab 12/21/18 Naproxen 500 mg PO BID PRN #20 tab 12/21/18 - Allergies Allergies/Adverse Reactions: Allergies Allergy/AdvReac Type Severity Reaction Status Date / Time No Known Allergies Allergy Verified 02/04/19 11:38 Review of Systems ROS Statement: Except As Marked, All Systems Reviewed And Found Negative Constitutional: Negative for: Fever, Chills, Sweats Cardiovascular: Positive for: Chest Pain Respiratory: Positive for: Shortness of Breath. Negative for: Cough Musculoskeletal: Negative for: Leg Pain (or swelling) Psych: Positive for: Anxiety Physical Exam - Reviewed Nursing Documentation Reviewed: Yes Vital Signs Reviewed: Yes - Physical Exam Appears: Positive for: Non-toxic, No Acute Distress Head Exam: Positive for: ATRAUMATIC, NORMAL INSPECTION, NORMOCEPHALIC Skin: Positive for: Normal Color, Warm, Dry. Negative for: Pallor Eye Exam: Positive for: Normal appearance ENT: Positive for: Normal ENT Inspection Neck: Positive for: Normal Cardiovascular/Chest: Positive for: Regular Rate, Rhythm, Chest Non Tender. Negative for: Tachycardia Respiratory: Positive for: Normal Breath Sounds. Negative for: Respiratory Distress Gastrointestinal/Abdominal: Positive for: Normal Exam, Soft. Negative for: Tenderness Back: Negative for: L CVA Tenderness, R CVA Tenderness Extremity: Positive for: Normal ROM (upper/lower). Negative for: Pedal Edema (bilaterally), Calf Tenderness (bilaterally) Neurological/Psych: Positive for: Awake, Alert, Oriented (x3), Mood/Affect (calm, cooperative, happy) - Laboratory Results Result Diagrams: 02/04/19 12:55 02/04/19 12:55 - ECG ECG: Positive for: Interpreted By Me ECG Rhythm: Positive for: Sinus Rhythm. Negative for: ST/T Changes Rate: 77 O2 Sat by Pulse Oximetry: 100 (RA) Pulse Ox Interpretation: Normal - Radiology X-Ray: Interpreted by Me (CXR) X-Ray Interpretation: No Acute Disease - Progress Re-evaluation Time: 14:00 (Advised to f/u with [facility] for further evaluation but is to return to ED immediately if symptoms worsen. ) Condition: Re-examined, Improved Medical Decision Making Medical Decision Making: Time: 1210 Initial Plan: * EKG * Labs * CXR Scribe Attestation: Documented by Alyse Montalvo, acting as a scribe for Antoine Barrett PA-C. Provider Scribe Attestation: All medical record entries made by the Scribe were at my direction and person ally dictated by me. I have reviewed the chart and agree that the record accurately reflects my personal performance of the history, physical exam, medical decision making, and the department course for this patient. I have also personally directed, reviewed, and agree with the discharge instructions and disposition. Disposition - Clinical Impression Clinical Impression: Chest pain - Patient ED Disposition Is Patient to be Admitted: No - Disposition Disposition: Routine/Home Disposition Time: 14:00 Condition: STABLE Additional Instructions: FOLLOW UP WITH YOUR DOCTOR FOR FURTHER EVALUATION RETURN TO ED IMMEDIATELY IF SYMPTOMS WORSEN SRINATH CHAPARRO, thank you for letting us take care of you today. Your provider was Srinivasa Garrett MD and you were treated for DIFFICULTY BREATHING,CHEST PAIN. The emergency medical care you received today was directed at your acute symptoms. If you were prescribed any medication, please fill it and take as directed. It may take several days for your symptoms to resolve. Return to the Emergency Department if your symptoms worsen, do not improve, or if you have any other problems. Please contact your doctor or call one of the physicians/clinics you have been referred to that are listed on the Patient Visit Information form that is included in your discharge packet. Bring any paperwork you were given at discharge with you along with any medications you are taking to your follow up visit. Our treatment cannot replace ongoing medical care by a primary care provider outside of the emergency department. Thank you for allowing the [facility] team to be part of your care today. If you had an X-Ray or CT scan: A Radiologist will review the ED reading if any change in treatment is needed we will contact you. If you had a blood, urine, or wound culture: It will take several days for the results, if any change in treatment is needed we will contact you. If you had an STI test: It will take 48 hours for the results. Please call after 1 week if you have not heard back. Instructions: Chest Pain That Is Not Caused by the Heart (DC) Forms: [employer] (Thai), [facility] ED School/Work Excuse Print Language: SYRIAC
[2019-02-04 13:18] LABS: BASO % 0.6 % (0.0-2.0); EOS # 0.1 K/uL (0.0-0.7); EOS % 1.4 % (0.0-4.0); LYMPH # 2.5 K/uL (1.0-4.3); LYMPH % 34.1 % (20.0-40.0); MEAN CORPUSCULAR HEMOGLOBIN 30.9 pg (27.0-31.0); MEAN CORPUSCULAR HGB CONC 34.7 g/dL (33.0-37.0); MEAN PLATELET VOLUME 8.6 fl (7.2-11.7); MONO # 0.4 K/uL (0.0-0.8); MONO % 5.2 % (0.0-10.0); NEUT # 4.3 K/uL (1.8-7.0); NEUT % 58.7 % (50.0-75.0); NRBC % 0.2 % (0.0-0.0); RBC 4.52 Mil/uL (3.80-5.20); RED CELL DISTRIBUTION WIDTH 12.7 % (11.5-14.5); WHITE BLOOD COUNT 7.3 K/uL (4.8-10.8)
[2019-02-04 13:26] LABS: ALB/GLOB RATIO 1.5 (1.0-2.1); ALBUMIN 4.9 g/dL (3.5-5.0); ALT/SGPT 41 U/L (9-52); AST/SGOT 33 U/L (14-36); BLOOD UREA NITROGEN 8 mg/dl (7-17); CALCIUM 9.8 mg/dL (8.4-10.2); GFR NON-AFRICAN AMERICAN > 60
--- NOTE | 2019-02-04 14:06 | RAD ---
Date of service: 02/04/2019 HISTORY: Chest pain COMPARISON: Comparison chest dated 10/14/2018. TECHNIQUE: Chest PA and lateral views FINDINGS: LUNGS: No active pulmonary disease. PLEURA: No significant pleural effusion identified. No pneumothorax apparent. CARDIOVASCULAR: No aortic atherosclerotic calcification present. Normal cardiac size. No pulmonary vascular congestion. OSSEOUS STRUCTURES: No significant abnormalities. VISUALIZED UPPER ABDOMEN: Normal. OTHER FINDINGS: None. IMPRESSION: No active disease.
[2019-02-04 14:08] VITALS: PULSE 77
--- NOTE | 2019-02-04 19:25 | CARD ---
APPROVED REPORT Date of service: 02/04/2019 EKG Measurement Heart [id number] <Conclusion> Normal sinus rhythm Normal ECG
== END 2019-02-04 14:20 | disposition home or self-care (01) ==
LOC: H.ER 11:11
DX: R07.89 Other chest pain (principal); F41.9 Anxiety disorder, unspecified